=== PATIENT | female | born 1950 | race Caucasian/White ===

== ENCOUNTER → 2016-12-21 | Outpatient (CLI) | payer BC ==
[~2016-12-21] MED LIST: GADAVIST IV PRN
--- NOTE | 2016-12-21 07:51 | DIAGNOSTIC IMAGING REPORT ---
ABDOMINAL MRI WITH AND WITHOUT INTRAVENOUS CONTRAST HISTORY: Follow-up PANCREATIC CYST TECHNIQUE: Multiplanar multisequence MRI of the abdomen was performed both before and after the intravenous administration of contrast to evaluate the pancreas. COMPARISON STUDY: None. FINDINGS: The lung bases are clear. The liver, spleen, gallbladder, and adrenal glands are unremarkable. Mild bilateral perinephric edema which is likely chronic. No hydronephrosis. No retroperitoneal or mesenteric lymphadenopathy. Visualized loops of bowel show no wall thickening or obstruction. Normal caliber common bile duct and main pancreatic duct. There are 2 similar-appearing T2 hyperintense, T1 hypointense nonenhancing lesions within the neck and body of the pancreas. The largest cystic lesion within the neck measures 13 mm. The smaller cystic lesion within the body measures 8 mm. A smaller lesion is adjacent to and likely connects to the main pancreatic duct. The larger lesion in the neck does not clearly connect to the pancreatic duct. However, this is difficult to assess due to the motion artifact. IMPRESSION: There are 2 similar-appearing cystic lesions within the neck and body of the pancreas measuring 13 mm and 8 mm, respectively. The smaller lesion is adjacent to and likely connects to the main pancreatic duct. The larger lesion does not clearly connect to the pancreatic duct. However, this is difficult to assess due to the motion artifact. 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 One year follow-up can be performed to ensure stability. Electronically signed by: Ravindra Thomas M.D. 12/21/2016 7:49 AM Dictated Date/Time: 12/21/2016 7:40 AM
== END | disposition home or self-care (01) ==
LOC: C.MRI 06:07
PROVIDERS: ATTEND Internal Medicine
DX: Z09 Encounter for follow-up examination after completed treatment for conditions other than malignant neoplasm (principal); K86.2 Cyst of pancreas